=== PATIENT | female | born 1970 | race Caucasian/White ===

== ENCOUNTER 2020-09-19 16:40 | Outpatient (REF) | payer OTHER, SELFPAY ==
--- NOTE | 2020-09-19 14:30 | PAPFT_PTH ---
PATIENT: Marisol Camara LOC: [facility] [place] U#:[id number] AGE/SX: 50/F ROOM: RE09/19/[address]: Mary Jane Soto : 1970 BED: DIS: 09/19/2020 SPEC #: [id number] RECD: 09/20/20 13:09 STATUS: JAMAR ALEXANDRE #: [id number] ELLA: 09/19/20 14:[address]: Mary Jane Metz DEPT: [facility] Cytology RECD BY: Latrice Nolan ENTERED: 09/20/20 13:09 SP TYPE: PAPFT KT DR: Unknown,Unknown Tissues: 1 - CX/ENDOCX FOR PAP SMEARS Procedures: PAP THIN PREP/[facility] Screening HPV DNA PROBE Comments: [id number]
== END 2020-09-19 16:41 | disposition home or self-care (01) ==
LOC: NCHCN 16:40
PROVIDERS: Visit Provider Nurse Practitioner Family
DX: Z12.4 Encounter for screening for malignant neoplasm of cervix (principal); Z11.51 Encounter for screening for human papillomavirus (HPV)
CPT/HCPCS: 88142; 87624